=== PATIENT | female | born 1955 | race American Indian/Alaskan Native ===

== ENCOUNTER 2017-04-29 09:50 | Emergency (ER) | payer SELFPAY ==
[2017-04-29 10:16] LABS: Eosinophils % (Auto) 2.6 % (0.0-4.3); Hematocrit 41.7 % (30.3-42.9); Hemoglobin 13.8 gm/dl (10.1-14.3); Mean Corpuscular HGB Conc 33 % (30-34); Mean Corpuscular Hemoglobin 28 pg (28-32); Mean Corpuscular Volume 86 fl (79-97); Platelet Count 291 K/mm3 (140-440); Red Blood Count 4.87 M/mm3 (3.65-5.03); Red Cell Distribution Width 13.1 % (13.2-15.2); White Blood Count 4.8 K/mm3 (4.5-11.0)
[2017-04-29 10:26] LABS: Bilirubin,Urine NEG (Negative); Blood,Urine NEG (Negative); Ketones,Urine NEG (Negative); Leukocyte Esterase,Urine TR (Negative); Mucus,Urine FEW /HPF; Nitrite,Urine NEG (Negative); Protein,Urine <15 mg/dL mg/dL (Negative); RBC,Urine < 1.0 /HPF (0.0-6.0); Urobilinogen,Urine < 2.0 mg/dL (<2.0)
[2017-04-29 10:35] LABS: Alanine Aminotransferase 10 units/L (7-56); Albumin 4.1 g/dL (3.9-5); Albumin/Globulin Ratio 1.1 %; Alkaline Phosphatase 116 units/L (35-129); Anion Gap 21 mmol/L; BUN/Creatinine Ratio 19; Blood Urea Nitrogen 13 mg/dL (7-17); Calcium 9.5 mg/dL (8.4-10.2); Carbon Dioxide 24 mmol/L (22-30); Chloride 99.1 mmol/L (98-107); Glucose 183 mg/dL (65-100); Lipase 46 units/L (13-60); Sodium 140 mmol/L (137-145); Total Protein 7.7 g/dL (6.3-8.2)
[2017-04-29 15:13] VITALS: BP 116/69
[2017-04-29] MEDS ORDERED: CARAFATE PO ONE (17:09)
[2017-04-29] MEDS ORDERED: TYLENOL PO ONE (17:09)
--- NOTE | 2017-04-29 17:10 | Emergency Department Report ---
ED General Adult HPI - General Chief complaint: Abdominal Pain Stated complaint: LEFT FLANK PAIN Time Seen by Provider: 04/29/17 17:02 Source: patient Mode of arrival: Ambulatory Limitations: No Limitations - History of Present Illness Initial comments: This is a 61-year-old female who was previously unknown to this provider, presenting to the ER with a complaint of constipation and left-sided abdominal pain. The pain is achy and "gassy" in nature, it has been present for 1 month, he does not have exacerbating or relieving factors. -: Gradual, week(s) Location: abdomen Radiation: non-radiation Severity scale (0 -10): 0 Quality: aching Consistency: intermittent Improves with: none Worsens with: none Associated Symptoms: denies: confusion, chest pain, cough, diaphoresis, headaches, loss of appetite, malaise, nausea/vomiting, rash, seizure, shortness of breath, syncope, weakness - Related Data Previous Rx's Medication Instructions Recorded Last Taken Type Ibuprofen [Motrin] 600 mg PO Q8H PRN #30 tablet 04/29/17 Unknown Rx Polyethylene Glycol 3350 [Miralax 17 gm PO QDAY #30 packet 04/29/17 Unknown Rx 3350] hydrOXYzine HCL [Atarax] 25 mg PO Q6HR PRN #20 tablet 04/29/17 Unknown Rx metFORMIN [Glucophage] 500 mg PO QDAY #30 tab 04/29/17 Unknown Rx Allergies Allergy/AdvReac Type Severity Reaction Status Date / Time No Known Allergies Allergy Unverified 04/29/17 09:54 ED Review of Systems ROS: Stated complaint: LEFT FLANK PAIN Other details as noted in HPI ED Past Medical Hx - Past Medical History Previous Medical History?: Yes Hx Diabetes: Yes Additional medical history: hyperactive thyroid - Surgical History Past Surgical History?: No Additional Surgical History: Radioactive iodine - Social History Smoking Status: Never Smoker Substance Use Type: Prescribed - Medications Home Medications: Home Medications Medication Instructions Recorded Confirmed Last Taken Type Ibuprofen [Motrin] 600 mg PO Q8H PRN #30 tablet 04/29/17 Unknown Rx Polyethylene Glycol 3350 [Miralax 17 gm PO QDAY #30 packet 04/29/17 Unknown Rx 3350] hydrOXYzine HCL [Atarax] 25 mg PO Q6HR PRN #20 tablet 04/29/17 Unknown Rx metFORMIN [Glucophage] 500 mg PO QDAY #30 tab 04/29/17 Unknown Rx ED Physical Exam - General Limitations: No Limitations General appearance: alert, in no apparent distress - Head Head exam: Present: atraumatic, normocephalic - Eye Eye exam: Present: normal appearance, EOMI. Absent: nystagmus - ENT ENT exam: Present: normal exam, normal orophraynx, mucous membranes moist, normal external ear exam - Neck Neck exam: Present: normal inspection, full ROM - Respiratory Respiratory exam: Present: normal lung sounds bilaterally. Absent: respiratory distress - Cardiovascular Cardiovascular Exam: Present: regular rate, normal rhythm, normal heart sounds. Absent: systolic murmur, diastolic murmur, rubs, gallop - GI/Abdominal GI/Abdominal exam: Present: soft, normal bowel sounds. Absent: distended, tenderness, guarding, rebound, rigid, pulsatile mass - Extremities Exam Extremities exam: Present: normal inspection, full ROM, normal capillary refill. Absent: pedal edema, joint swelling, calf tenderness - Back Exam Back exam: Present: normal inspection, full ROM. Absent: tenderness, CVA tenderness (R), paraspinal tenderness, vertebral tenderness - Neurological Exam Neurological exam: Present: alert, oriented X3, CN II-XII intact, normal gait, other (Extraocular movements intact. Tongue midline. No facial droop. Facial sensation intact to light touch in the V1, V2, V3 distribution bilaterally. 5 and 5 strength in 4 extremities.. Sensation is intact to light touch in 4 extremities.). Absent: motor sensory deficit - Psychiatric Psychiatric exam: Present: normal affect, normal mood - Skin Skin exam: Present: warm, dry, intact, normal color. Absent: rash ED Course Vital Signs 04/29/17 04/29/17 04/29/17 09:54 12:35 15:13 Temperature 97.9 F 97.6 F 98.2 F Pulse Rate 64 51 L 53 L Respiratory 18 18 18 Rate Blood Pressure 155/84 Blood Pressure 150/68 116/69 [Right] O2 Sat by Pulse 100 96 Oximetry 04/29/17 15:14 Temperature Pulse Rate Respiratory 16 Rate Blood Pressure Blood Pressure [Right] O2 Sat by Pulse Oximetry - Reevaluation(s) Reevaluation #1: 04/29/17 17:53 Patient reports last defecating 3-4 days ago. She is passing gas. There are normal bowel sounds. Patient indicates no history of abdominal surgery ED Medical Decision Making - Lab Data Result diagrams: 04/29/17 10:01 04/29/17 10:01 Vital Signs 04/29/17 04/29/17 04/29/17 09:54 12:35 15:13 Temperature 97.9 F 97.6 F 98.2 F Pulse Rate 64 51 L 53 L Respiratory 18 18 18 Rate Blood Pressure 155/84 Blood Pressure 150/68 116/69 [Right] O2 Sat by Pulse 100 96 Oximetry 04/29/17 15:14 Temperature Pulse Rate Respiratory 16 Rate Blood Pressure Blood Pressure [Right] O2 Sat by Pulse Oximetry Lab Results 04/29/17 04/29/17 04/29/17 Range/Units 10:01 10:01 10:12 WBC 4.8 (4.5-11.0) K/mm3 RBC 4.87 (3.65-5.03) M/mm3 Hgb 13.8 (10.1-14.3) gm/dl Hct 41.7 (30.3-42.9) % MCV 86 (79-97) fl MCH 28 (28-32) pg MCHC 33 (30-34) % RDW 13.1 L (13.2-15.2) % Plt Count 291 (140-440) K/mm3 Lymph % (Auto) 36.0 H (13.4-35.0) % [place] % (Auto) 10.2 H (0.0-7.3) % Eos % (Auto) 2.6 (0.0-4.3) % Baso % (Auto) 1.0 (0.0-1.8) % Lymph # 1.7 (1.2-5.4) K/mm3 [place] # 0.5 (0.0-0.8) K/mm3 Eos # 0.1 (0.0-0.4) K/mm3 Baso # 0.0 (0.0-0.1) K/mm3 Seg Neutrophils % 50.2 (40.0-70.0) % Seg Neutrophils # 2.4 (1.8-7.7) K/mm3 Sodium 140 (137-145) mmol/L Potassium 4.0 (3.6-5.0) mmol/L Chloride 99.1 (98-107) mmol/L Carbon Dioxide 24 (22-30) mmol/L Anion Gap 21 mmol/L BUN 13 (7-17) mg/dL Creatinine 0.7 (0.7-1.2) mg/dL Estimated GFR > 60 ml/min BUN/Creatinine Ratio 19 % Glucose 183 H (65-100) mg/dL Calcium 9.5 (8.4-10.2) mg/dL Total Bilirubin 0.60 (0.1-1.2) mg/dL AST 13 (5-40) units/L ALT 10 (7-56) units/L Alkaline Phosphatase 116 (35-129) units/L Total Protein 7.7 (6.3-8.2) g/dL Albumin 4.1 (3.9-5) g/dL Albumin/Globulin Ratio 1.1 % Lipase 46 (13-60) units/L Urine Color Yellow (Yellow) Urine Turbidity Clear (Clear) Urine pH 5.0 (5.0-7.0) Ur Specific [place] 1.015 (1.003-1.030) Urine Protein <15 mg/dl (Negative) mg/dL Urine Glucose (UA) Neg (Negative) mg/dL Urine Ketones Neg (Negative) mg/dL Urine Blood Neg (Negative) Urine Nitrite Neg (Negative) Urine Bilirubin Neg (Negative) Urine Urobilinogen < 2.0 (<2.0) mg/dL Ur Leukocyte Esterase Tr (Negative) Urine WBC (Auto) 1.0 (0.0-6.0) /HPF Urine RBC (Auto) < 1.0 (0.0-6.0) /HPF U Epithel Cells (Auto) < 1.0 (0-13.0) /HPF Urine Mucus Few /HPF - Radiology Data Radiology results: image reviewed interpreted by me: X-ray of the abdomen, 2 views, interpreted by me: Constipation, no other acute disease - Medical Decision Making Differential diagnosis, including not limited to: Medication refill, constipation Assessment and plan: 51-year-old female who reports 1 month of flank discomfort. She is afebrile with reassuring vital signs with the exception of elevated blood pressure which was resolved on additional evaluations.. NO PULMONARY EMBOLUS OR DVT RISK FACTORS, LOW RISK BY WELL'S CRITERIA. The patient has essentially no abdominal tenderness, smiling, laughing, and appears quite comfortable, laboratory studies were unremarkable, therefore I do not feel the patient requires advanced imaging at this time. Patient did request medication refill, including metformin, and ibuprofen. She will be referred to outpatient primary care, and she is instructed regarding diet and lifestyle modification Critical care attestation.: If time is entered above; I have spent that time in minutes in the direct care of this critically ill patient, excluding procedure time. ED Disposition Clinical Impression: Constipation Disposition: DC-01 TO HOME OR SELFCARE Is pt being admited?: No Does the pt Need Aspirin: No Condition: Stable Additional Instructions: Take the medications as needed/directed. Increase water consumption to 6-8 cups of water per day. eat plenty plenty of fruits, fibers, vegetables. Follow up with her primary care doctor within the next month. Return to the ER right away with new pain, worsening, migration of pain, fevers, chills, lethargy , irritability, projectile vomiting, change in mental status, confusion, inability to tolerate liquid feeds. Prescriptions: hydrOXYzine HCL [Atarax] 25 mg PO Q6HR PRN #20 tablet PRN Reason: Itching Ibuprofen [Motrin] 600 mg PO Q8H PRN #30 tablet PRN Reason: Pain metFORMIN [Glucophage] 500 mg PO QDAY #30 tab Polyethylene Glycol 3350 [Miralax 3350] 17 gm PO QDAY #30 packet Referrals: PRIMARY MD GOGO [Primary Care Provider] - 3-5 Days CHELSEY RAO MD [Staff Physician] - 3-5 Days [facility] [Provider Group] - 3-5 Days
--- NOTE | 2017-04-29 18:56 | XRay Report ---
FINAL REPORT EXAM: XR ABDOMEN 2V HISTORY: abd pain constipation. Radiating abdomen pain, more so on left side for a few weeks. TECHNIQUE: 2 views of the abdomen PRIORS: None. FINDINGS: Slight lumbar curvature with lower right apex. No evidence of abnormal fluid level or subdiaphragmatic free air on the upright examination. The nonspecific intestinal gas is without evidence of distention or obstructive pattern. Nonspecific prominence of stool in descending colon and sigmoid colon. There is no visceromegaly or mass. Degenerative changes are present in the regional skeleton. No radiographic evidence of urinary tract calcification. IMPRESSION: Nonspecific bowel gas pattern without intestinal distention. Prominent left colonic feces may correspond with history of constipation
== END 2017-04-29 19:15 | disposition home or self-care (01) ==
LOC: ED 09:50
DX: K59.00 Constipation, unspecified (principal); E11.9 Type 2 diabetes mellitus without complications
CPT/HCPCS: 36415; 74020; 80053; 81001; 83690; 85025; 99284